=== PATIENT | female | born 1985 | race Caucasian/White ===

== ENCOUNTER → 2023-10-03 | Outpatient (CLI) | payer BC ==
--- NOTE | 2023-10-03 12:07 | US ---
EXAMINATION TYPE: US thyroid st tissue head/neck DATE OF EXAM: 10/03/2023 COMPARISON: 09/05/22 CLINICAL INDICATION: Female, 38 years old with history of E03.9 hypothyroidism; hx right thyroidectom y GLAND SIZE: Right Lobe: 0.7 x 0.5 x 0.6 cm - ? Residual tissue/ hx right thyroidectomy Left Lobe: 4.8 x 1.6 x 1.9 cm Overall Parenchyma: Homogeneous Isthmus Thickness: 0.25 cm NODULES RIGHT: # of nodules measured on right: 0 LEFT: # of nodules measured on left: 1 1. 1.3 X 0.5 x 0.9 cm, upper medial, solid or almost completely solid, TR 4 hypoechoic nodule, whic h is wider than tall, with smooth margins, without echogenic foci. Prior size: 1.4 x 0.5 x 0.8 cm ISTHMUS: # of nodules measured in the isthmus: 0 Bilateral neck scanned, no evidence of lymphadenopathy. [employer] notes: Possible residual tissue noted right fossa IMPRESSION: 1. Status post right thyroidectomy. There is a soft tissue nodule measuring 7 mm in the right thyroid ectomy bed, not clearly identified previously. Some residual, or recurrent tissue or a developing new nodule or the differential. Reassess at follow-up. 2. The 1.3 cm TR4 nodule in the left lobe remains unchanged.
== END | disposition home or self-care (01) ==
LOC: MERGE 09-17 15:40 → RADUSWWP 08:31
PROVIDERS: ATTEND Family Medicine
DX: E03.9 Hypothyroidism, unspecified (principal); E04.1 Nontoxic single thyroid nodule; Z90.89 Acquired absence of other organs
CPT/HCPCS: 76536

== ENCOUNTER → 2023-11-20 | Outpatient (CLI) | payer BC ==
--- NOTE | 2023-11-20 14:51 | CT ---
EXAMINATION TYPE: CT soft tissue neck wo con DATE OF EXAM: 11/20/2023 HISTORY: THYROID NODULE COMPARISON: None CT DLP: 366 mGycm. Automated Exposure Control for Dose Reduction was Utilized. TECHNIQUE: Multiple axial images are obtained through the soft tissues of the neck without contrast. FINDINGS: There are surgical absence of the right lobe of the thyroid gland. There is a 6 mm nodule in the left lobe of the thyroid gland. The larynx including the cricoid, arytenoid, thyroid cartilages as well as the true and false vocal cords are normal and symmetric. The tongue base, epiglottis, aryepiglottic folds, piriform sinuses and vallecula are normal and symme tric without mass. There are no pharyngeal or parapharyngeal soft tissue masses. The parotid and submandibular glands are normal and symmetric. The retropharyngeal soft tissues are normal. There is no adenopathy within the neck. Visualized intraorbital contents and there is a sinuses are normal and symmetric.. IMPRESSION: 1. Surgical absence of the right lobe of thyroid gland. 2. small 6 mm hypodense nodule in the left lobe of the thyroid gland. 3. No other significant abnormality seen.
== END | disposition home or self-care (01) ==
LOC: RADCTMAIN 14:09
PROVIDERS: ATTEND Family Medicine
DX: E04.1 Nontoxic single thyroid nodule (principal); Z90.89 Acquired absence of other organs
CPT/HCPCS: 70490

== ENCOUNTER 2024-01-01 19:34 | Emergency (ER) | payer BC ==
[2024-01-01 20:01] VITALS: TEMP 98.4
[2024-01-01] MEDS ORDERED: LIDOCAINE 4% PATCH TOPICAL ONE (20:27)
[2024-01-01] MEDS ORDERED: ORPHENADRINE 30 MG/ML 2 ML VIAL IM STA (20:27)
[2024-01-01] MEDS ORDERED: HYDROmorphone 0.5 MG/0.5 ML SYRINGE IM STA (20:28)
--- NOTE | 2024-01-01 20:40 | ED ---
General Adult HPI - General Chief complaint: Extremity Injury, Lower Stated complaint: Left leg pain and numbness Time Seen by Provider: 01/01/24 19:49 Source: patient, RN notes reviewed Mode of arrival: wheelchair Limitations: no limitations - History of Present Illness Initial comments: 38-year-old female presents to the emergency department for evaluation of left knee pain. She states that this has been on and off for the past couple of months. Patient states that when she bends down occasionally her knee pops and then she has significant pain after this. She denies any trauma to the knee. Denies any redness or swelling. She does report that she [facility] and had x-rays obtained which were negative. She is scheduled for an MRI on Sunday. She reports that at the time that she was evaluated at [facility] she was not having the knee pain. She states when she got home she bent down slightly and her knee popped and she has had pain since then. She does report taking ibuprofen at home. - Related Data Home Medications Medication Instructions Recorded Confirmed Escitalopram Oxalate [Lexapro] 1 tab PO HS 08/16/22 08/17/22 Vienva 0.1/0.02mg 1 tab PO DAILY 08/16/22 08/17/22 Previous Rx's Medication Instructions Recorded HYDROcodone/APAP 5-325MG [[place] 1 tab PO Q6HR PRN 3 Days #12 tab 01/01/24 5-325] Ketorolac [Toradol] 10 mg PO Q6HR #15 tab 01/01/24 Lidocaine 5% Patch [Lidoderm 5% 1 patch TOPICAL DAILY #30 patch 01/01/24 Patch] Allergies Allergy/AdvReac Type Severity Reaction Status Date / Time Penicillins Allergy Rash/Hives Verified 01/01/24 19:45 Review of Systems ROS Statement: Those systems with pertinent positive or pertinent negative responses have been documented in the HPI. ROS Other: All systems not noted in ROS Statement are negative. Past Medical History Past Medical History: Thyroid Disorder Additional Past Medical History / Comment(s): Pt states she passed out earlier in the summer and wore heart monitor this summer . see Dr Negrete H&P. 1/2 thyroid History of Any Multi-Drug Resistant Organisms: None Reported Additional Past Surgical History / Comment(s): 1/2 thyroid removed (2009) Past Anesthesia/Blood Transfusion Reactions: No Reported Reaction Additional Past Anesthesia/Blood Transfusion Reaction / Comment(s): no blood transfusions Past Psychological History: Anxiety Smoking Status: Never smoker Past Alcohol Use History: Rare Past Drug Use History: Marijuana - Past Family History Mother Family Medical History: Hyperlipidemia Father Family Medical History: No Reported History General Exam Limitations: no limitations General appearance: alert, in no apparent distress Head exam: Present: atraumatic, normocephalic, normal inspection Eye exam: Present: normal appearance, PERRL, EOMI. Absent: scleral icterus, conjunctival injection, periorbital swelling Respiratory exam: Present: normal lung sounds bilaterally. Absent: respiratory distress, wheezes, rales, rhonchi, stridor Cardiovascular Exam: Present: regular rate, normal rhythm, normal heart sounds. Absent: systolic murmur, diastolic murmur, rubs, gallop, clicks Extremities exam: Present: normal inspection, tenderness, normal capillary refill, other (DP and PT pulses 2+, no significant erythema or swelling to the knees bilaterally). Absent: full ROM (Decreased range of motion with pain), pedal edema, joint swelling, calf tenderness Back exam: Present: normal inspection Neurological exam: Present: alert, oriented X3 Psychiatric exam: Present: normal affect, normal mood Skin exam: Present: warm, dry, intact, normal color. Absent: rash Course Vital Signs 01/01/24 01/01/24 19:39 21:06 Temperature 98.4 F Pulse Rate 88 90 Respiratory 16 18 Rate Blood Pressure 122/83 116/72 O2 Sat by Pulse 99 97 Oximetry Medical Decision Making - Medical Decision Making Was pt. sent in by a medical professional or institution (Dr. PA, [employer], urgent care, hospital, or intermediate...) When possible be specific @ -No Did you speak to anyone other than the patient for history (EMS, parent, family, police, friend...)? What history was obtained from this source @ -No Did you review nursing and triage notes (agree or disagree)? Why? @ -I reviewed and agree with nursing and triage notes Were old charts reviewed (outside hosp., previous admission, EMS record, old EKG, old radiological studies, urgent care reports/EKG's, intermediate records)? Report findings @ -No old charts were reviewed Differential Diagnosis (chest pain, altered mental status, abdominal pain women, abdominal pain men, vaginal bleeding, weakness, fever, dyspnea, syncope, headache, dizziness, GI bleed, back pain, seizure, CVA, palpatations, mental health, musculoskeletal)? @ -Differential Musculoskeletal Muscular strain, contusion, ligament sprain, fracture, arthritis, septic arthritis, bursitis, cellulitis, muscle spasm, nerve compression, DVT, arterial occlusion, herpes zoster, electrolyte abnormality, tumor.... This is not meant to be in all inclusive list e EKG interpreted by me (3pts min.). @ -None X-rays interpreted by me (1pt min.). @ -XR of the left knee shows no acute fracture, small suprapatellar effusion CT interpreted by me (1pt min.). @ -None done U/S interpreted by me (1pt. min.). @ -None done What testing was considered but not performed or refused? (CT, X-rays, U/S, labs)? Why? @ -None What meds were considered but not given or refused? Why? @ -None Did you discuss the management of the patient with other professionals (professionals i.e. , PA, [facility] [employer], lab, RT, psych nurse, rn social services, inside sales consultant, teacher, forward air controller/air officer, renal case manager)? Give summary @ -No Was smoking cessation discussed for >3mins.? @ -No Was critical care preformed (if so, how long)? @ -No Were there social determinants of health that impacted care today? How? (Homelessness, low income, unemployed, alcoholism, drug addiction, transportation, low edu. Level, literacy, decrease access to med. care, halfway, rehab)? @ -No Was there de-escalation of care discussed even if they declined (Discuss DNR or withdrawal of care, Hospice)? DNR status @ -No What co-morbidities impacted this encounter? (DM, HTN, Smoking, COPD, CAD, Cancer, CVA, ARF, Chemo, Hep., AIDS, mental health diagnosis, sleep apnea, morbid obesity)? @ -None Was patient admitted / discharged? Hospital course, mention meds given and route, prescriptions, significant lab abnormalities, going to OR and other pertinent info. @ -Discharge. Patient presented to the emergency department for evaluation of left knee pain. She denies any known injury. She states that this has been going on for couple months now but today when she bent down she felt a pop again in her knee and her pain has been worse since then. [facility] but she was not having the pain at that time. X- rays obtained here show no acute fracture with a small suprapatellar effusion. Patient is scheduled for an MRI on Sunday. Patient provided medication for pain control and given medication for pain control at home. Advised to follow-up for her MRI on Sunday. Patient was placed in a knee immobilizer and given crutches. Advised to utilize early mobility. Patient understanding agreeable with plan. Patient stable at time of discharge. Case discussed with Dr. Madison Undiagnosed new problem with uncertain prognosis? @ -No Drug Therapy requiring intensive monitoring for toxicity (Heparin, Nitro, Insulin, Cardizem)? @ -No Were any procedures done? @ -No Diagnosis/symptom? @ -Left knee pain Acute, or Chronic, or Acute on Chronic? @ -Acute Uncomplicated (without systemic symptoms) or Complicated (systemic symptoms)? @ -Uncomplicated Side effects of treatment? @ -No Exacerbation, Progression, or Severe Exacerbation? @ -No Poses a threat to life or bodily function? How? (Chest pain, [place], [place], pneumonia, PE, COPD, DKA, ARF, appy, cholecystitis, CVA, Diverticulitis, Homicidal, Suicidal, threat to staff... and all critical care pts) @ -No Disposition Clinical Impression: Knee pain, left Disposition: HOME SELF-CARE Condition: Stable Instructions (If sedation given, give patient instructions): Knee Pain (ED) Additional Instructions: Please follow up for your MRI and follow up with orthopedics. Return to the emergency department for new or worsening symptoms. Prescriptions: Lidocaine 5% Patch [Lidoderm 5% Patch] 1 patch TOPICAL DAILY #30 patch HYDROcodone/APAP 5-325MG [[place] 5-325] 1 tab PO Q6HR PRN 3 Days #12 tab PRN Reason: Pain Ketorolac [Toradol] 10 mg PO Q6HR #15 tab Is patient prescribed a controlled substance at d/c from ED?: No Referrals: Hector Cloud DO [Primary Care Provider] - 1-2 days
--- NOTE | 2024-01-01 20:54 | XR ---
EXAMINATION TYPE: XR knee complete LT DATE OF EXAM: 01/01/2024 8:50 PM CLINICAL INDICATION:Female, 38 years old with history of pain; [facility] COMPARISON: None. TECHNIQUE: The Left knee(s) was examined in Frontal, lateral and oblique projections. FINDINGS: No evidence of any acute osseous pathology, soft tissue swelling. Small suprapatellar nikole nt effusion. IMPRESSION: 1. No acute osseous pathology. 2. Small suprapatellar joint effusion.
[2024-01-01 21:22] VITALS: BP 116/72; PULSE 90; RESP 18
== END 2024-01-01 22:10 | disposition home or self-care (01) ==
LOC: EC 19:34
DX: M25.562 Pain in left knee (principal); F41.9 Anxiety disorder, unspecified; F12.90 Cannabis use, unspecified, uncomplicated; Z79.899 Other long term (current) drug therapy; Z88.0 Allergy status to penicillin
CPT/HCPCS: 73562; 99283; 96372 ×2; J2360; J1170

== ENCOUNTER → 2024-05-26 | Outpatient (CLI) | payer BC ==
[2024-05-26 18:20] LABS: Basophils # (A) 0.05 X 10*3/uL (0.00-0.10); Basophils % (A) 0.6 %; Eosinophils # (A) 0.05 X 10*3/uL (0.04-0.35); Eosinophils % (A) 0.6 %; HGB 14.4 g/dL (12.0-15.0); Lymphocytes # (A) 3.11 X 10*3/uL (0.90-5.00); Lymphocytes % (A) 38.2 %; MCH 29.9 pg (27.0-32.0); MCV 93.6 FL (80.0-97.0); Mean Platelet Volume 10.4 FL (9.5-12.2); Monocytes # (A) 0.29 X 10*3/uL (0.20-1.00); Monocytes % (A) 3.6 %; NRBC Per 100 WBC 0 X 10*3/uL (0.00-0.01); Neutrophils # (A) 4.62 X 10*3/uL (1.80-7.70); Neutrophils % (A) 56.8 %; Platelet Count 344 X 10*3/uL (140-440); RBC 4.81 X 10*6/uL (4.10-5.20); RDW 12.3 % (11.5-14.5); WBC 8.14 X 10*3/uL (4.50-10.00)
[2024-05-26 19:53] LABS: ALT 16 U/L (8-44); AST 20 U/L (13-35); Albumin 4.5 g/dL (3.8-4.9); Albumin/Globulin Ratio 1.45 Ratio (1.60-3.17); Alkaline Phosphatase 100 U/L (41-126); Blood Urea Nitrogen 5.6 mg/dL (9.0-27.0); Calcium 9.4 mg/dL (8.7-10.3); Carbon Dioxide 24.4 mmol/L (21.6-31.8); Chloride 100 mmol/L (96-109); Globulin 3.1 g/dL (1.6-3.3); Glucose 90 mg/dL (70-110); Potassium 4.1 mmol/L (3.5-5.5); Sodium 136 mmol/L (135-145); T4, Free (Free Thyroxine) 1.16 ng/dL (0.80-1.80); Total Bilirubin 0.3 mg/dL (0.3-1.2); Total Protein 7.6 g/dL (6.2-8.2)
== END | disposition home or self-care (01) ==
LOC: LABWHC1 13:02
PROVIDERS: ATTEND Internal Medicine Endocrinology, Diabetes & Metabolism
DX: E03.9 Hypothyroidism, unspecified (principal); E04.1 Nontoxic single thyroid nodule
CPT/HCPCS: 36415; 80053; 84439; 84443; 84481; 85025; 86800

== ENCOUNTER → 2024-10-01 | Outpatient (CLI) | payer BC ==
[2024-10-01 15:00] LABS: INR 0.9 (<1.2); Partial Thromboplastin Time 25.4 sec (22.0-30.0); Prothrombin Time 10.3 sec (10.0-12.5)
[2024-10-01 18:40] LABS: Basophils # (A) 0.03 X 10*3/uL (0.00-0.10); Basophils % (A) 0.4 %; Eosinophils # (A) 0.06 X 10*3/uL (0.04-0.35); Eosinophils % (A) 0.7 %; HCT 43.6 % (37.2-46.3); HGB 14.4 g/dL (12.0-15.0); Lymphocytes % (A) 32.9 %; MCH 30.2 pg (27.0-32.0); MCV 91.4 FL (80.0-97.0); Mean Platelet Volume 10.6 FL (9.5-12.2); Monocytes % (A) 4.9 %; NRBC Per 100 WBC 0 X 10*3/uL (0.00-0.01); Neutrophils # (A) 5.01 X 10*3/uL (1.80-7.70); Platelet Count 316 X 10*3/uL (140-440); RBC 4.77 X 10*6/uL (4.10-5.20); RDW 12.1 % (11.5-14.5); WBC 8.21 X 10*3/uL (4.50-10.00)
[2024-10-01 18:44] LABS: ALT 14 U/L (8-44); AST 17 U/L (13-35); Albumin 4.1 g/dL (3.8-4.9); Albumin/Globulin Ratio 1.52 Ratio (1.60-3.17); Alkaline Phosphatase 86 U/L (41-126); BUN/Creat Ratio 13.71 Ratio (12.00-20.00); Blood Urea Nitrogen 9.6 mg/dL (9.0-27.0); Calcium 9.1 mg/dL (8.7-10.3); Carbon Dioxide 22.2 mmol/L (21.6-31.8); Chloride 100 mmol/L (96-109); Chol/HDL Ratio 4.15 Ratio; Globulin 2.7 g/dL (1.6-3.3); Glucose 73 mg/dL (70-110); LDL Cholesterol,Calculated 134.7 mg/dL (0.0-131.0); Sodium 135 mmol/L (135-145); T4, Free (Free Thyroxine) 1.13 ng/dL (0.80-1.80); Total Bilirubin 0.3 mg/dL (0.3-1.2); Total Protein 6.8 g/dL (6.2-8.2)
== END | disposition home or self-care (01) ==
LOC: LABWHC1 12:40
DX: R58 Hemorrhage, not elsewhere classified (principal)
CPT/HCPCS: 36415; 80053; 80061; 84439; 84443; 85025; 85610; 85730

== ENCOUNTER → 2024-11-11 | Outpatient (CLI) | payer BC ==
--- NOTE | 2024-11-11 22:35 | MR ---
EXAMINATION TYPE: MR knee LT wo con DATE OF EXAM: 11/11/2024 COMPARISON: Left knee x-ray January 01, 2023 HISTORY: left knee pain, painful knee pain, knee locking, swelling, scope clean out in February 2024. TECHNIQUE: Multiplanar, multisequence images of the knee is performed without IV contrast. FINDINGS: MEDIAL MENISCUS: Anterior and posterior horns are intact without tear. LATERAL MENISCUS: Anterior and posterior horns are intact without tear. CRUCIATE LIGAMENTS: The anterior and posterior cruciate ligaments are intact and unremarkable. COLLATERAL LIGAMENTS: The medial collateral ligament and lateral collateral ligament complex are inta ct and unremarkable. EXTENSOR MECHANISM: Visualized quadriceps and patellar tendons are intact. EFFUSION: No significant suprapatellar joint effusion. POPLITEAL CYST: No popliteal/méndez cyst. TRICOMPARTMENT SPACES: Mild to moderate narrowing patellofemoral compartment. No significant spurring . CARTILAGE: Tricompartmental articular cartilage is preserved. BONE MARROW SIGNAL: No focal abnormal marrow signal is appreciated. OTHER: No additional significant abnormality is appreciated. IMPRESSION: No meniscal or ligamentous tear is seen. Early or mild patellofemoral joint arthropathy o therwise unremarkable study. [facility], , 11/11/2024 10:33 PM
== END | disposition home or self-care (01) ==
LOC: RADMRIMAIN 15:34
PROVIDERS: ATTEND Orthopaedic Surgery
DX: M22.2X2 Patellofemoral disorders, left knee (principal); S83.282D Other tear of lateral meniscus, current injury, left knee, subsequent encounter